=== PATIENT | male | born 1980 | race Two or more races ===

== ENCOUNTER 2018-10-30 12:02 | Emergency (ER) | payer SELFPAY, MEDICAID ==
[~2018-10-30] VITALS: Ht 180.3 cm; Wt 81.6 kg
--- NOTE | 2018-10-30 12:15 | NUR ---
ED Nurse Note: pt in custody ermd eval done awaiting nsg orders.
[2018-10-30 12:20] VITALS: BP 116/78
--- NOTE | 2018-10-30 12:21 | Emergency Room Report ---
History of Present Illness General Chief Complaint: To Be Triaged Source: Patient Present Illness HPI 38-year-old male denies any medical problems, has no complaints, presents for medical incarceration, initially endorsed chest pain but he stated that giving him just will make it better, and a sandwich, he denies any shortness of breath , abdominal pain, he has no complaints at this moment, patient states he is ready to go. Allergies: Coded Allergies: No Known Allergies (Unverified , 10/30/18) Patient History Past Medical History: see triage record Reviewed Nursing Documentation: PMH: Agreed; PSxH: Agreed Review of Systems Constitutional: Denies: chills, fever Eye: Denies: blurred vision, double vision ENT: Denies: throat pain, nasal discharge Respiratory: Denies: cough, shortness of breath Cardiovascular: Reports: chest pain - Resolved after juice administration; Denies: palpitations Gastrointestinal: Denies: abdominal pain, diarrhea, nausea, vomiting Genitourinary: Denies: dysuria, pain Musculoskeletal: Denies: back pain, muscle pain Skin: Denies: rash, lesions Neurological: Denies: headache, focal weakness Hematologic/Lymphatic: Denies: easy bleeding, easy bruising All Other Systems: negative except mentioned in HPI Physical Exam Last 24 Hour Vital Signs Date Time Temp Pulse Resp B/P (MAP) Pulse Ox O2 Delivery O2 Flow Rate FiO2 10/30/18 12:15 97.9 100 20 116/78 (91) 96 Room Air Sp02 EP Interpretation: reviewed, normal General Appearance: well appearing, no apparent distress, alert Head: normocephalic, atraumatic Eyes: bilateral eye PERRL, bilateral eye EOMI ENT: uvula midline, moist mucus membranes Neck: supple, thyroid normal, supple/symm/no masses Respiratory: lungs clear, no respiratory distress, no retraction, no accessory muscle use Cardiovascular #1: normal peripheral pulses, regular rate, rhythm, no edema, no gallop, no murmur Gastrointestinal: non tender, soft, no guarding, no rebound Musculoskeletal: normal inspection Neurologic: alert, oriented x3 Psychiatric: mood/affect normal Skin: no rash, warm/dry Medical Decision Making Diagnostic Impression: Primary Impression: Medical clearance for incarceration Additional Impression: Atypical chest pain ER Course Patient with atypical chest pain, most likely secondary gain, patient states juice makes his chest pain go away, he is also stating a central mucus chest pain go away patient provide juice, chest pain resolved disposition with law enforcement with return precautions EKG Diagnostic Results EKG Time: 12:07 EP Interpretation: SR, rate 82, QTc 453, no acute ST elevations, normal axis Rate: normal Rhythm: NSR ST Segments: no acute changes Disposition: D/C TO LAW ENFORCEMENT IN CUST Condition: Stable Departure Forms: Group Home Clearance Patient Instructions: Medical Screening Exam, Nonspecific Chest Pain, Easy-to- Read Additional Instructions: The patient was provided with discharge instructions, notified to follow-up with a primary care doctor and or specialist in the next 24-48 hours, and to return to the ED if they have worsening of their symptoms. Please note that this report is being documented using DRAGON technology. This can lead to erroneous entry secondary to incorrect interpretation by the dictating instrument. Edd Lieberman MD Oct 30, 2018 12:21
[2018-10-30 12:30] VITALS: BP 118/70
--- NOTE | 2018-10-30 12:30 | NUR ---
ED Nurse Note: pt cleared to be d/c per ERMD, pt discharge and aftercare instruction provided w/ [facility] clearance form, pt advised to follow up with [facility] medical staff, vss, ambulatory w/ steady gait, accompanied by [facility], left w/ all belongings.
== END 2018-10-30 12:35 ==
LOC: EMR 12:25
DX: R07.89 Other chest pain (principal); Z02.89 Encounter for other administrative examinations
CPT/HCPCS: 93005; 99282